=== PATIENT | female | born 1965 | race Caucasian/White ===

== ENCOUNTER 2017-02-21 16:18 | Emergency (ER) | payer OTHER ==
[~2017-02-21] VITALS: Ht 162.6 cm; Wt 100.0 kg
[~2017-02-21 16:18] MED LIST: AMOXICILLIN/CL875 MG PO; AMOXICILLIN500 MG OR; AUGMENTIN875TAB PO; BENZONATATE200 MG PO; DOXYCYCL HYC100 MG PO; FIORICET PO; FLAGYL250 MG PO; KETOROLAC60 MG/2 ML IJ; LISINOP/HCTZ1 TAB PO; MEDDOSEPAK PO; MUPIROCIN2 % EX; NAPROSYN500 MG OR; PROAIR HFA IN; ROBITUSSIN AC10 ML PO; TESSALON PER100 MG PO; ZPAK PO; [UNRECOGNIZED DRUG - REMARK]
[2017-02-21 16:53] LABS: HEMATOCRIT 40.7 % (37.0-47.0); HEMOGLOBIN 13.8 g/dl (12.0-16.0); IMMATURE GRANULOCYTES 0.3 % (0.0-1.0); MEAN CELL VOLUME 92.3 fL CALC (80.0-100.0); MEAN CORPUSCULAR HGB 31.3 pG CALC (26.0-32.0); MEAN CORPUSCULAR HGB CONC 33.9 g/L CALC (32.0-36.0); NEUT# 8.39 thou/uL (2.00-7.15); RED BLOOD COUNT 4.41 mill/uL (4.20-5.60); RED CELL DISTRI WIDTH 14.2 % (11.5-15.5)
[2017-02-21 17:14] LABS: ALBUMIN 4.2 g/dL (3.2-5.0); ALKALINE PHOSPHATASE 111 u/l (38-126); ANION GAP 13 (6-22 (CALC)); BILIRUBIN, TOTAL 0.3 mg/dL (0.0-1.4); BUN 14 mg/dL (7-17); BUN/CREATININE RATIO 22 (12-20 (CALC)); CALCIUM 8.7 mg/dL (8.4-10.2); CARBON DIOXIDE 29 mmol/l (22-30); CHLORIDE 102 mmol/l (95-108); CREATININE 0.6 mg/dL (0.5-1.0); GFR > 60 ML/MIN (>=60 (CALC)); GFR FOR AFR.AMER. > 60 ML/MIN (>=60 (CALC)); GLUCOSE 99 mg/dL (65-105); SGOT/AST 28 u/l (14-36); SGPT/ALT 44 u/l (9-52); SODIUM 140 mmol/l (137-146); TOTAL PROTEIN 7.7 g/dL (6.3-8.2)
[2017-02-21] MEDS ORDERED: TRAMADOL HYDROC50 MG PO (17:19)
[2017-02-21] MEDS ORDERED: MOTRIN800 MG PO (17:19)
[2017-02-21] MEDS ORDERED: FLEXERIL PO (17:19)
[2017-02-21 17:26] LABS: MYOGLOBIN 25 ng/mL (0 - 62)
[2017-02-21 17:54] VITALS: BP 113/68
== END 2017-02-21 18:02 | disposition home or self-care (01) | DRG 556 ==
LOC: ED 16:18
PROVIDERS: Emergency Medicine
DX: M79.1 Myalgia (principal); I10 Essential (primary) hypertension; R94.31 Abnormal electrocardiogram [ECG] [EKG]; F17.200 Nicotine dependence, unspecified, uncomplicated

== ENCOUNTER 2017-07-24 12:23 | Observation (INO) | payer OTHER ==
[~2017-07-24] VITALS: Ht 162.6 cm; Wt 108.9 kg
[~2017-07-24 12:23] MED LIST changes: +FLEXERIL PO; +MOTRIN800 MG PO; +TRAMADOL HYDROC50 MG PO
[2017-07-24] MEDS ORDERED: QVAR80 MCG/ACT IN (12:43)
[2017-07-24 12:51] LABS: HEMATOCRIT 41.6 % (37.0-47.0); HEMOGLOBIN 13.7 g/dl (12.0-16.0); IMMATURE GRANULOCYTES 0.6 % (0.0-1.0); MEAN CELL VOLUME 95.4 fL CALC (80.0-100.0); MEAN CORPUSCULAR HGB 31.4 pG CALC (26.0-32.0); MEAN CORPUSCULAR HGB CONC 32.9 g/L CALC (32.0-36.0); NEUT# 7.98 thou/uL (2.00-7.15); RED BLOOD COUNT 4.36 mill/uL (4.20-5.60)
[2017-07-24 13:06] LABS: ALBUMIN 4.5 g/dL (3.2-5.0); ALKALINE PHOSPHATASE 128 u/l (38-126); ANION GAP 14 (6-22 (CALC)); BILIRUBIN, TOTAL 0.2 mg/dL (0.0-1.4); BUN 14 mg/dL (7-17); BUN/CREATININE RATIO 23 (12-20 (CALC)); CALCIUM 9.2 mg/dL (8.4-10.2); CARBON DIOXIDE 29 mmol/l (22-30); CHLORIDE 105 mmol/l (95-108); CREATININE 0.6 mg/dL (0.5-1.0); GFR > 60 ML/MIN (>=60 (CALC)); GFR FOR AFR.AMER. > 60 ML/MIN (>=60 (CALC)); GLUCOSE 105 mg/dL (65-105); POTASSIUM 4.4 mmol/l (3.5-5.1); SGOT/AST 36 u/l (14-36); SGPT/ALT 51 u/l (9-52); SODIUM 143 mmol/l (137-146); TOTAL PROTEIN 7.8 g/dL (6.3-8.2)
[2017-07-24 13:13] LABS: MYOGLOBIN 51 ng/mL (0 - 62)
[2017-07-24 15:08] LABS: URINE BILIRUBIN - DIPSTICK NEGATIVE (NEGATIVE); URINE BLOOD DIPSTICK NEGATIVE (NEGATIVE); URINE COLOR YELLOW; URINE GLUCOSE - DIPSTICK NEGATIVE (NEGATIVE); URINE KETONE NEGATIVE (NEGATIVE); URINE LEUK ESTERASE NEGATIVE (NEGATIVE); URINE NITRITE - DIPSTICK NEGATIVE (Negative); URINE PROTEIN - DIPSTICK NEGATIVE (NEG-TRACE); URINE SPECIFIC GRAVITY <=1.005; URINE UROBILINOGEN - DIPSTICK 0.2 E.U./dL (0.2)
[2017-07-24 15:09] LABS: URINE CLARITY CLEAR
[2017-07-24 17:07] VITALS: BP 143/87
[2017-07-24 18:55] VITALS: BP 113/70
[2017-07-25 00:18] VITALS: BP 129/58
[2017-07-25 04:02] VITALS: BP 139/81
[2017-07-25 06:27] LABS: ANION GAP 16 (6-22 (CALC)); BUN 10 mg/dL (7-17); BUN/CREATININE RATIO 17 (12-20 (CALC)); CALCIUM 9.1 mg/dL (8.4-10.2); CARBON DIOXIDE 27 mmol/l (22-30); CHLORIDE 106 mmol/l (95-108); CREATININE 0.6 mg/dL (0.5-1.0); GFR > 60 ML/MIN (>=60 (CALC)); GFR FOR AFR.AMER. > 60 ML/MIN (>=60 (CALC)); GLUCOSE 196 mg/dL (65-105); POTASSIUM 5.1 mmol/l (3.5-5.1); SODIUM 144 mmol/l (137-146)
[2017-07-25 08:00] VITALS: BP 153/97
== END 2017-07-25 10:40 | disposition left against medical advice (07) | DRG 192 ==
LOC: ED 12:23 → ED-I 13:30 → ED 13:42 → MS2 14:14
PROVIDERS: Emergency Medicine; Internal Medicine; ADMIT Internal Medicine; ATTEND Internal Medicine
DX: J44.1 Chronic obstructive pulmonary disease with (acute) exacerbation (principal); I10 Essential (primary) hypertension; F17.210 Nicotine dependence, cigarettes, uncomplicated; Z87.440 Personal history of urinary (tract) infections
CPT/HCPCS: G0378; J1650

== ENCOUNTER 2017-08-22 08:46 | Emergency (ER) | payer OTHER ==
[~2017-08-22] VITALS: Ht 162.6 cm; Wt 105.0 kg
[~2017-08-22 08:46] MED LIST changes: +QVAR80 MCG/ACT IN
[2017-08-22 09:34] LABS: HEMATOCRIT 43.9 % (37.0-47.0); HEMOGLOBIN 14.2 g/dl (12.0-16.0); IMMATURE GRANULOCYTES 0.3 % (0.0-1.0); MEAN CELL VOLUME 95.4 fL CALC (80.0-100.0); MEAN CORPUSCULAR HGB 30.9 pG CALC (26.0-32.0); MEAN CORPUSCULAR HGB CONC 32.3 g/L CALC (32.0-36.0); NEUT# 5.86 thou/uL (2.00-7.15); RED BLOOD COUNT 4.6 mill/uL (4.20-5.60); RED CELL DISTRI WIDTH 13.5 % (11.5-15.5)
[2017-08-22 09:40] LABS: ANION GAP 14 (6-22 (CALC)); BUN 8 mg/dL (7-17); BUN/CREATININE RATIO 13 (12-20 (CALC)); CALCIUM 9.4 mg/dL (8.4-10.2); CARBON DIOXIDE 28 mmol/l (22-30); CHLORIDE 104 mmol/l (95-108); CREATININE 0.7 mg/dL (0.5-1.0); GFR > 60 ML/MIN (>=60 (CALC)); GFR FOR AFR.AMER. > 60 ML/MIN (>=60 (CALC)); GLUCOSE 110 mg/dL (65-105); POTASSIUM 4.3 mmol/l (3.5-5.1); SODIUM 141 mmol/l (137-146)
[2017-08-22 10:16] LABS: INFLUENZA A NONE DETECTED (NONE DETECT); INFLUENZA B NONE DETECTED (NONE DETECT)
[2017-08-22] MEDS ORDERED: PREDNISONE50 MG PO ×2 (10:25→11:02)
[2017-08-22] MEDS ORDERED: ZPAK PO ×2 (10:25→11:02)
[2017-08-22] MEDS ORDERED: QVAR80 MCG/ACT PO ×2 (10:25→11:02)
[2017-08-22] MEDS ORDERED: PROAIR HFA108 MCG/AC PO ×2 (10:25→11:02)
[2017-08-22 10:30] VITALS: BP 132/80
== END 2017-08-22 10:30 | disposition home or self-care (01) | DRG 192 ==
LOC: ED 08:46
PROVIDERS: Family Medicine
DX: J44.1 Chronic obstructive pulmonary disease with (acute) exacerbation (principal); F17.210 Nicotine dependence, cigarettes, uncomplicated; I10 Essential (primary) hypertension; M19.90 Unspecified osteoarthritis, unspecified site; F41.9 Anxiety disorder, unspecified; R05 Cough; R06.2 Wheezing; R06.02 Shortness of breath

== ENCOUNTER 2018-02-23 07:41 | Emergency (ER) | payer OTHER ==
[~2018-02-23] VITALS: Ht 162.6 cm; Wt 100.0 kg
[~2018-02-23 07:41] MED LIST changes: +PREDNISONE50 MG PO; +PROAIR HFA108 MCG/AC PO; +QVAR80 MCG/ACT PO
[2018-02-23] MEDS ORDERED: ZPAK PO (08:24)
[2018-02-23] MEDS ORDERED: PREDNISONE50 MG PO (08:24)
[2018-02-23 08:47] VITALS: BP 136/78
[2018-02-23] MEDS ORDERED: LISINOPRIL10 MG PO (09:07)
== END 2018-02-23 08:58 | disposition home or self-care (01) ==
LOC: ED 07:41
DX: J44.1 Chronic obstructive pulmonary disease with (acute) exacerbation (principal); F17.210 Nicotine dependence, cigarettes, uncomplicated; R06.02 Shortness of breath

== ENCOUNTER 2018-03-28 23:19 | Emergency (ER) | payer OTHER ==
[~2018-03-28] VITALS: Ht 162.6 cm; Wt 102.8 kg
[~2018-03-28 23:19] MED LIST changes: +LISINOPRIL10 MG PO
[2018-03-29] MEDS ORDERED: MOTRIN800 MG PO (00:29)
[2018-03-29] MEDS ORDERED: TRAMADOL HCL50 MG PO (00:29)
[2018-03-29 00:39] VITALS: BP 143/73
== END 2018-03-29 00:41 | disposition home or self-care (01) ==
LOC: ED 23:19
DX: S70.01XA Contusion of right hip, initial encounter (principal); W17.89XA Other fall from one level to another, initial encounter; Y92.008 Other place in unspecified non-institutional (private) residence as the place of occurrence of the external cause

== ENCOUNTER 2019-02-04 19:36 | Observation (INO) | payer SELFPAY ==
[~2019-02-04] VITALS: Ht 162.6 cm; Wt 103.0 kg
[~2019-02-04 19:36] MED LIST changes: +TRAMADOL HCL50 MG PO
[2019-02-04 20:13] LABS: URINE BILIRUBIN - DIPSTICK NEGATIVE (NEGATIVE); URINE BLOOD DIPSTICK TRACE-INTACT (NEGATIVE); URINE COLOR YELLOW; URINE GLUCOSE - DIPSTICK NEGATIVE (NEGATIVE); URINE KETONE NEGATIVE (NEGATIVE); URINE LEUK ESTERASE NEGATIVE (NEGATIVE); URINE NITRITE - DIPSTICK NEGATIVE (Negative); URINE PROTEIN - DIPSTICK NEGATIVE (NEG-TRACE); URINE UROBILINOGEN - DIPSTICK 0.2 E.U./dL (0.2)
[2019-02-04 20:14] LABS: HEMATOCRIT 41.3 % (37.0-47.0); HEMOGLOBIN 13.5 g/dl (12.0-16.0); IMMATURE GRANULOCYTES 0.6 % (0.0-5.0); MEAN CELL VOLUME 91.6 fL CALC (80.0-100.0); MEAN CORPUSCULAR HGB 29.9 pG CALC (26.0-32.0); MEAN CORPUSCULAR HGB CONC 32.7 g/L CALC (32.0-36.0); NEUT# 11.5 thou/uL (2.00-7.15); RED BLOOD COUNT 4.51 mill/uL (4.20-5.60); RED CELL DISTRI WIDTH 15.2 % (11.5-15.5)
--- NOTE | 2019-02-04 20:24 | NUR ---
PT ARRIVES TO ROOM VIA WHEELCHAIR, PRODUCTIVE COUGH NOTED. PT NOW WITH IV ESTABLISHED, BLOOD DRAWN, BLOOD CULTURES COLLECTED, URINE PROVIDED. RESP THERAPY HAS BEEN BY TO PROVIDE TREATMENT. SON AT BEDSIDE.
[2019-02-04 20:25] LABS: ALBUMIN 4.1 g/dL (3.2-5.0); ALKALINE PHOSPHATASE 130 u/l (38-126); ANION GAP 15 (6-22 (CALC)); BILIRUBIN, TOTAL 0.2 mg/dL (0.0-1.4); BUN 14 mg/dL (7-17); BUN/CREATININE RATIO 23 (12-20 (CALC)); CARBON DIOXIDE 28 mmol/l (22-30); CHLORIDE 103 mmol/l (95-108); CREATININE 0.6 mg/dL (0.5-1.0); GFR > 60 ML/MIN (>=60 (CALC)); GFR FOR AFR.AMER. > 60 ML/MIN (>=60 (CALC)); POTASSIUM 4.3 mmol/l (3.5-5.1); SGOT/AST 20 u/l (14-36); SODIUM 141 mmol/l (137-146); TOTAL PROTEIN 7.2 g/dL (6.3-8.2)
[2019-02-04 20:37] LABS: MYOGLOBIN 35 ng/mL (0 - 62)
--- NOTE | 2019-02-04 20:57 | NUR ---
PT CONTINUES WITH COUGH. PT UPDATED ON FINDINGS THEY COME KNOWN.
--- NOTE | 2019-02-04 21:57 | NUR ---
ASSUMED CARE. PT RESTING. VSS.
--- NOTE | 2019-02-04 22:08 | NUR ---
REPORT TO XIAO/NURSE/MEDSURG
--- NOTE | 2019-02-04 22:10 | NUR ---
TO FLOOR VIA W/C. BELONGINGS WITH PT. S.O. HOME. PT RESTING. NAD. RESP EASY. FREQUENT NON PRODUCTIVE COUGH
[2019-02-04 22:15] VITALS: BP 143/84
--- NOTE | 2019-02-04 22:15 | NUR ---
PT ARRIVED TO THE FLOOR VIA WC, ACCOMPANIED BY ED NURSE. PT APPEARS TO BE IN STABLE CONDITION. AIDE IN W/PT OBTAINING V/S AND ORIENTING PT TO ROOM,CALL SYSTEM, BED, LIGHTS AND TV. GOLF COURSE EQUIPMENT OPERATOR WILL FOLLOW-UP WITH ASSESSMENT AND ANY MEDICATIONS ORDERED.
[2019-02-05] VITALS (7 sets, daily range): BP systolic 133–169; BP diastolic 72–91
--- NOTE | 2019-02-05 00:15 | NUR ---
PT MEDICATED ORDERS PROVIDE AND FOR HEADACHE REPORTED 11/17. WILL CONTINUE TO MONITOR. SUPER NOTIFIED OF NEW ORDERS FOR MEDICATIONS. WILL FOLLOW-UP WITH ANTIBIOITIC THERAPY ORDERED. PT DENIES ANY OTHER NEEDS AT THIS TIME. CALL LIGHT AT SIDE.
--- NOTE | 2019-02-05 01:34 | NUR ---
PT MEDICATED W/IV ANTIOBITIC THERAPY ORDERS PROVIDE. POC DISCUSSED W/PT AGAIN. PT DENIES ANY NEEDS AT THIS TIME, REPORTING TYLENOL HELPED HER HEADACHE. CALL LIGHT IN HAND.
--- NOTE | 2019-02-05 05:05 | NUR ---
ED CALLED TO REPORT PT IS HAVING ARYTHMIA'S W/HR 58-102. PT CHECKED/PT APPEARS ASYMPTOMATIC, DENIES SOB OTHER THAN COUGHING FITS, DENIES PAIN/N/SWEATS. V/S ASSESSED, BP 128/70, HR 99, 02SATS 92%RA/02 PLACED ON PT@2L 02SATS PROMPLTY CAME UP TO 95%. EKG ORDERED.
--- NOTE | 2019-02-05 05:30 | NUR ---
RESPIRATORY IN TO SEE PT FOR EKG.
--- NOTE | 2019-02-05 05:40 | NUR ---
PT MEDICATED ORDERS PROVIDE. PT RECEIVED DUONEB TREATMENT AT THIS TIME BY RESPIRATORY
[2019-02-05 06:03] LABS: HEMATOCRIT 39.4 % (37.0-47.0); HEMOGLOBIN 12.9 g/dl (12.0-16.0); IMMATURE GRANULOCYTES 1.1 % (0.0-5.0); MEAN CELL VOLUME 92.1 fL CALC (80.0-100.0); MEAN CORPUSCULAR HGB 30.1 pG CALC (26.0-32.0); MEAN CORPUSCULAR HGB CONC 32.7 g/L CALC (32.0-36.0); NEUT# 15.25 thou/uL (2.00-7.15); RED BLOOD COUNT 4.28 mill/uL (4.20-5.60); RED CELL DISTRI WIDTH 15.3 % (11.5-15.5)
[2019-02-05 06:11] LABS: ALBUMIN 3.7 g/dL (3.2-5.0); ALKALINE PHOSPHATASE 119 u/l (38-126); AMYLASE 48 u/l (30-110); ANION GAP 15 (6-22 (CALC)); BILIRUBIN, TOTAL 0.2 mg/dL (0.0-1.4); BUN 11 mg/dL (7-17); BUN/CREATININE RATIO 21 (12-20 (CALC)); CARBON DIOXIDE 27 mmol/l (22-30); CHLORIDE 105 mmol/l (95-108); CREATININE 0.5 mg/dL (0.5-1.0); GFR > 60 ML/MIN (>=60 (CALC)); GFR FOR AFR.AMER. > 60 ML/MIN (>=60 (CALC)); LIPASE 24 u/l (23-300); MAGNESIUM 1.8 mg/dL (1.6-2.3); POTASSIUM 4.8 mmol/l (3.5-5.1); SGOT/AST 17 u/l (14-36); SODIUM 141 mmol/l (137-146); TOTAL PROTEIN 6.6 g/dL (6.3-8.2)
--- NOTE | 2019-02-05 07:00 | NUR ---
PT REPORT RECIEVED FROM AILYN HAGEN. PT WATCHING TELEVISION. NO S/S OF DISTRESS. CALL LIGHT IN REACH. WILL CONTINUE TO MONITOR.
--- NOTE | 2019-02-05 08:10 | NUR ---
PT A/O X3. SPEECH IS CLEAR. RESP EVEN AND UNLABORED. NONPRODUCTIVE COUGH NOTED. LUNG SOUNDS CLEAR. O2 @2L @BEDSIDE. TELE IN PLACE. BOWEL SOUNDS ACTIVE X4. STRONG RADIAL AND PEDAL PULSES. #20 LAC SL. FLUSHED AND PATENT. SITE APPEARS HEALTHY. TRACE OF EDEMA NOTED TO BLE. SKIN INTACT. PT DENIES ANY PAIN OR NEEDS AT THIS TIME. POC DISCUSSED. SAFETY PRECAUTIONS IN PLACE. CALL LIGHT IN REACH. WILL CONTINUE TO MONITOR.
--- NOTE | 2019-02-05 12:08 | NUR ---
PT WATCHING TELEVISION. NO C/O PAIN OR NEEDS. ANXIOUS TO GO HOME. CALL LIGHT IN REACH. WILL CONTINUE TO MONITOR.
--- NOTE | 2019-02-05 16:29 | NUR ---
PT RESTING. NO C/O PAIN OR NEEDS. TELE IN PLACE. CALL LIGHT IN REACH. WILL CONTINUE TO MONITOR.
--- NOTE | 2019-02-05 19:05 | NUR ---
REPORT RECEIVED FROM DAY NURSE, PT IS IN BED IN LOW FOWLERS POSITION W/TV OFF, APPEARS TO BE SLEEPING. DID NOT AWAKE TO MY ENTERING ROOM. CALL LIGHT IS AT SIDE.
[2019-02-06 00:04] VITALS: BP 160/86
--- NOTE | 2019-02-06 00:30 | NUR ---
PT MEDICATED ORDERS PROVIDE AND FOR COUGH. PT IS AWAKE WATCHING TV. DENIES ANY OTHER NEEDS AT THIS TIME. CALL LIGHT AT SIDE AND PT ENCOURAGED TO CALL NEEDS ARISE.
--- NOTE | 2019-02-06 04:09 | NUR ---
PT IS SLEEPING AT THIS TIME. CAN BE HEARD COUGHING, BUT NO OTHER S/O DISTRESS AT THIS TIME. PT HAS BEEN MEDICATED FOR COUGH ORDERS PROVIDE.
[2019-02-06 04:16] VITALS: BP 154/79
[2019-02-06 05:02] LABS: HEMATOCRIT 38.1 % (37.0-47.0); HEMOGLOBIN 12.3 g/dl (12.0-16.0); IMMATURE GRANULOCYTES 2.8 % (0.0-5.0); MEAN CELL VOLUME 92.3 fL CALC (80.0-100.0); MEAN CORPUSCULAR HGB 29.8 pG CALC (26.0-32.0); MEAN CORPUSCULAR HGB CONC 32.3 g/L CALC (32.0-36.0); NEUT# 18.42 thou/uL (2.00-7.15); RED BLOOD COUNT 4.13 mill/uL (4.20-5.60); RED CELL DISTRI WIDTH 15.4 % (11.5-15.5)
[2019-02-06 05:17] LABS: ANION GAP 13 (6-22 (CALC)); BUN 13 mg/dL (7-17); BUN/CREATININE RATIO 27 (12-20 (CALC)); CARBON DIOXIDE 26 mmol/l (22-30); CHLORIDE 109 mmol/l (95-108); CREATININE 0.5 mg/dL (0.5-1.0); GFR > 60 ML/MIN (>=60 (CALC)); GFR FOR AFR.AMER. > 60 ML/MIN (>=60 (CALC)); POTASSIUM 4.5 mmol/l (3.5-5.1); SODIUM 143 mmol/l (137-146)
--- NOTE | 2019-02-06 05:20 | NUR ---
PT IS SLEEPING AT THIS TIME. NO S/O DISTRESS NOTED. CALL LIGHT AT BEDSIDE.
--- NOTE | 2019-02-06 06:12 | NUR ---
PT MEDICATED FOR COUGHT AND HEADACHE "FROM COUGHING." PT REPORTS STRESS [id number] AND ASSISTED W/SUPPLIES NEEDED. POC DISCUSSED, PT REPORTS NEEDING TO GO BACK TO WORK TODAY. WILL INFORM DAY NURSE OF TIMETABLE. DENIES ANY OTHER NEEDS.
--- NOTE | 2019-02-06 07:00 | NUR ---
PT REPORT RECIEVED FROM AILYN HAGEN. PT WATCHING TELEVISION. NO S/S OF DISTRESS. CALL LIGHT IN REACH. WILL CONTINUE TO MONITOR.
[2019-02-06 07:48] VITALS: BP 164/91
--- NOTE | 2019-02-06 07:48 | NUR ---
PT A/O X3. RESP EVEN AND UNLABORED. UPPER LOBES CLEAR, LOWER LOBES DIMINISHED. TELE IN PLACE. NONPRODUCTIVE COUGH NOTED. BOWEL SOUNDS ACTIVE X4. STRONG RADIAL AND PEDAL PULSES. #20 LAC SL. FLUSHED AND PATENT. SITE APPEARS HEALTHY. SKIN INTACT. TRACE EDEMA NOTED TO BILATERAL FEET. PT DENIES ANY PAIN OR NEEDS. POC DISCUSSED. SAFETY PRECAUTIONS IN PLACE. CALL LIGHT IN REACH. WILL CONTINUE TO MONITOR.
--- NOTE | 2019-02-06 10:00 | NUR ---
PT CALLED ASSOCIATE PROFESSOR OF THEOLOGY INTO ROOM. PT STATES " I AM LEAVING BECAUSE I HAVE TO WORK TONIGHT. DISCUSSED W/ PT THE RISKS FACTORS OF LEAVING AMA. PT STATES UNDERSTANDING. IV REMOVED. CATHETER INTACT. TELE ROMOVED. PT GETTING DRESSED.
--- NOTE | 2019-02-06 10:15 | NUR ---
PT LEFT AMBULATORY TO GO HOME.
== END 2019-02-06 10:00 | disposition left against medical advice (07) | DRG 192 ==
LOC: ED 19:36 → ED-I 21:34 → ED 21:52 → MS2 21:53
PROVIDERS: Emergency Medicine; Nurse Practitioner Family; ADMIT Internal Medicine Nephrology; ATTEND Internal Medicine Nephrology
DX: J43.9 Emphysema, unspecified (principal); I10 Essential (primary) hypertension; M19.90 Unspecified osteoarthritis, unspecified site; F17.210 Nicotine dependence, cigarettes, uncomplicated; F41.1 Generalized anxiety disorder; M62.830 Muscle spasm of back
CPT/HCPCS: G0378; J1650

== ENCOUNTER 2019-06-08 21:48 | Emergency (ER) | payer SELFPAY ==
[~2019-06-08] VITALS: Ht 162.6 cm; Wt 99.1 kg
[2019-06-08 22:40] LABS: URINE BILIRUBIN - DIPSTICK NEGATIVE (NEGATIVE); URINE BLOOD DIPSTICK LARGE (NEGATIVE); URINE COLOR YELLOW; URINE GLUCOSE - DIPSTICK NEGATIVE (NEGATIVE); URINE KETONE NEGATIVE (NEGATIVE); URINE NITRITE - DIPSTICK NEGATIVE (Negative); URINE PROTEIN - DIPSTICK TRACE mg/dL (NEG-TRACE); URINE UROBILINOGEN - DIPSTICK 0.2 E.U./dL (0.2)
[2019-06-08 22:41] LABS: URINE LEUK ESTERASE MODERATE (NEGATIVE)
[2019-06-08 22:43] LABS: URINE SQUAMOUS EPITHELIAL CELL FEW EPI/hpf (0-FEW); URINE WBC TNTC WBC/hpf (0-5)
[2019-06-08] MEDS ORDERED: PYRIDIUM200 MG PO (23:03)
[2019-06-08] MEDS ORDERED: CEPHALEXIN500 M1 PO (23:03)
[2019-06-08 23:45] VITALS: BP 134/77
== END 2019-06-08 23:45 | disposition home or self-care (01) | DRG 690 ==
LOC: ED 21:48
PROVIDERS: Emergency Medicine
DX: N39.0 Urinary tract infection, site not specified (principal); I10 Essential (primary) hypertension; J44.9 Chronic obstructive pulmonary disease, unspecified; F17.200 Nicotine dependence, unspecified, uncomplicated

== ENCOUNTER 2019-08-02 21:03 | Observation (INO) | payer SELFPAY ==
[~2019-08-02] VITALS: Ht 162.6 cm; Wt 98.1 kg
[~2019-08-02 21:03] MED LIST changes: +CEPHALEXIN500 M1 PO; +PYRIDIUM200 MG PO
--- NOTE | 2019-08-02 21:03 | NUR ---
TO ROOM 10 VIA EMS. [facility] MARLENE TX COMPLETING (FROM EMS). IV IN PLACE BUT PT REFUSED IV STERIODS BY EMS. TAKING BUT SITTING UPRIGHT AND GASPING WITH SPEECH. C/O SOB X 3 WEEKS BUT WORSE SINCE YESTERDAY. USING OLD MARLENE CHA. REPORTS NO MD OR PRESCRIBED MEDICATION
--- NOTE | 2019-08-02 21:15 | NUR ---
DISCUSSED NEED OF IV STERIODS AT LENGTH WITH PATIENT WHO REFUSED SAYING HER WHOLE BODY SWELLS UP WITH IT ND SHE DOES NOT WANT ANY... NOT EVEN 1 DOSE IN ER. MD TO COMPLY WITH PATIENT'S DESIRE
[2019-08-02 21:46] LABS: HEMOGLOBIN 13.6 g/dl (12.0-16.0); IMMATURE GRANULOCYTES 0.4 % (0.0-5.0); MEAN CELL VOLUME 91.9 fL CALC (80.0-100.0); MEAN CORPUSCULAR HGB 30.5 pG CALC (26.0-32.0); MEAN CORPUSCULAR HGB CONC 33.2 g/L CALC (32.0-36.0); NEUT# 9.73 thou/uL (2.00-7.15); RED BLOOD COUNT 4.46 mill/uL (4.20-5.60); RED CELL DISTRI WIDTH 14.3 % (11.5-15.5)
--- NOTE | 2019-08-02 22:00 | NUR ---
BEDRESTING. NOT TENSE ON ARRIVAL. BREATHING EASIER. PERIODIC COUGH NOTED
[2019-08-02 22:08] LABS: ALBUMIN 3.9 g/dL (3.2-5.0); ALKALINE PHOSPHATASE 115 u/l (38-126); ANION GAP 14 (6-22 (CALC)); BUN 9 mg/dL (7-17); BUN/CREATININE RATIO 16 (12-20 (CALC)); CARBON DIOXIDE 23 mmol/l (22-30); CHLORIDE 106 mmol/l (95-108); CREATININE 0.6 mg/dL (0.5-1.0); GFR > 60 ML/MIN (>=60 (CALC)); GFR FOR AFR.AMER. > 60 ML/MIN (>=60 (CALC)); SGOT/AST 22 u/l (14-36); SODIUM 139 mmol/l (137-146); TOTAL PROTEIN 7.5 g/dL (6.3-8.2)
--- NOTE | 2019-08-02 22:09 | NUR ---
BREATHING TREATMENT GIVEN BACK TO BACK. BREATHING TECH. FOR GOOD DEPOSITION TO THE LUNGS.
[2019-08-02 22:10] LABS: BILIRUBIN, TOTAL 0.3 mg/dL (0.0-1.4)
[2019-08-02 22:20] LABS: MYOGLOBIN 48 ng/mL (0 - 62)
--- NOTE | 2019-08-02 22:35 | NUR ---
MD DISCUSSED STATUS AND PLAN OF CARE WITH PATIENT- INCLUDING NO STERIODS
--- NOTE | 2019-08-02 22:55 | NUR ---
REPORT CALLED TO AKI
--- NOTE | 2019-08-02 23:00 | NUR ---
TO MS VIA W/C
[2019-08-02 23:11] VITALS: BP 144/84
--- NOTE | 2019-08-03 | NUR ---
PATIENT ADMITTED FROM ER VIA WHELLCHAIR WITH ER STAFF AND S/O IN ATTENDANCE. PATIENT AWAKE ALERT AND ORIENTEDX3 WITH VISABLE TREMORS-STATES THAT SHE IS FREEZING. WARM BLANKETS PROVIDED. PATIENT ABLE TO TRANSFER FRON WHEELCHAIR TO BED WITH MIN ASSIST. PATIENT ADMITTED FOR COPD EXACERBATION. O2 SAT-92 ON ROOM AIR AND O2 VIA NASAL CANNULA APPLIED. PATIENT WITH DIMINISHED BS THROUGHOUT. ABD IS SOFT WITH ACTIVE BS-LAST BM WAS 08/02. DENIES ANY DIFFICULTY WITH VOIDING. PATIENT WITH BLE EDEMA 2+. IV SITE TO LEFT AC-#18 [facility]. SITE IS HEALTHY AT THIS TIME. PATIENT ORIENTED TO ROOM AND SURROUNDINGS. INSTRUCTED ON USE OF NURSE CALL LIGHT SYSTEM, TV REMOTE AND PHONE. SAFETY PRECAUTIONS REVIEWED WITH PATIENT. PATIENT WITH FOOD S/O BROUGHT IN. CALL LIGHT IN REACH.WILL CONT TO MONITOR.
[2019-08-03 04:10] VITALS: BP 144/93
--- NOTE | 2019-08-03 04:12 | NUR ---
PATIENT AWAKE ALERT ANDORIENTEDX3-SITTING UPIN BED C/O SOB. VS TAKEN AND RECORDED. O2 93% ON ROOM AIR. PATIENT TOOK O2 OFF. PATIENT WITH NON-PRODUCTIVE COUGH. RT HERE FOR NEB TREATMENT. WILL CONT TO MONITOR.
[2019-08-03 07:46] VITALS: BP 142/72
--- NOTE | 2019-08-03 07:46 | NUR ---
PT SITTING UP IN BED. C/O COUGH WITH SMALL BROWN THICK PHLEGM. ASSESSMENT COMPLETED. NO SOB NOTED AT THIS TIME. POC DISCUSSED WITH PT. PT VERBALIZES UNDERSTANDING. CALL LIGHT IN REACH. WILL CONTINUE TO MONITOR.
--- NOTE | 2019-08-03 11:13 | NUR ---
PT SITTING UP IN BED. SIGNIFICANT OTHER AT BEDISDE. PT DENIES ANY NEEDS. CALL LIGHT IN REACH.
--- NOTE | 2019-08-03 15:40 | NUR ---
REGGIE GONZALEZ AND DR BURRELL AT BEDSIDE.
[2019-08-03 16:00] VITALS: BP 149/98
--- NOTE | 2019-08-03 16:20 | NUR ---
PT SITTING UP IN CHAIR. IV ABT INFUSING AT THIS TIME. PT TOLERATING WELL. DENIES ANY NEEDS AT THIS TIME. PT STATES SHE IS REFUSING SOLUMEDROL ORDER DUE TO "HAVING REACTION TO MEDICATION." PT DENIES ALLERGY TO MEDICATION BUT STATES SHE "SWELLS UP". REGGIE GONZALEZ NOTIFIED DURING AFTERNOON ROUNDS. WILL CONTINUE TO MONITOR. CALL LIGHT IN REACH.
--- NOTE | 2019-08-03 17:20 | NUR ---
[id number] OTHER YELLING OUT IN HALLWAY "I NEED A NURSE." ANCHOR TACKER AT BEDSIDE. PT DIAPHORETIC, SOB, AND UNDRESSED. PT YELLING "I CAN'T BREATHE." O2 HANGING BEHIND PTS NECK. OXYGEN 2L NC PLACED. PT JUST COMPLETED BREATHING BUT STATED SHE FELT SOB PRIOR TO BREATHING TX. ROSALBA, RT AND REGGIE GONZALEZ AT BEDSIDE. O2 SATING 88%-95%. HR 78-154. SIGNIFICANT OTHER REMAINS AT BEDSIDE. PER REGGIE GONZALEZ, PT HAVING A PANIC ATTACK. PT ADMITS TO HAVING PANIC ATTACKS, ESPECIALLY LAST NIGHT AND THAT IS WHY SHE CALLED EMS. PURSED LIP BREATHING ENCOURAGED. RT AND KENNEL OPERATOR LEAVE ROOM. ANCHOR TACKER AND SIGNIFICANT OTHER REMAIN AT BEDSIDE. AFTER SEVERAL MINUTES, PT DOING BETTER WITH HR AND O2 SATS. PT STILL STATING "I CAN'T BREATHE." BREATHING AND RELAXING TECHNIQUES STILL ENCOURAGED. SIGNIFICANT OTHER AT BEDSIDE ON PHONE CALLING PTS DAUGHTER. REQUESTING DAUGHTER "COME TO THE HOSPITAL NOW. YOUR MOM IS HAVING ANOTHER EPISODE." REGGIE GONZALEZ NOTIFIED OF SIGNIFICANT OTHERS CALL. DAUGHTER AT BEDSIDE WITHIN MINUTES. DAUGHTER ASSISTING TO HELP PT CALM DOWN. FAN PROVIDED FOR PT. PT'S O2 SATS 92-98% ON 2L NC. DAUGHTER STATES PT WOULD LIKE TO TAKE SOLU MEDROL TO HELP OPEN UP AIRWAY. INFORMED DAUGHTER PER PT, SHE IS UNABLE TO TAKE DUE TO SWELLING. DAUGHTER STATES PT IS OK WITH TAKING STERIODS Q12H BUT NOT "CONSTANTLY". ANCHOR TACKER UPDATED REGGIE GONZALEZ. SOLU MEDROL GIVEN. EDUCATED PT ON SIDE EFFECTS OF MED. PT REMAINS SITTING ON SIDE OF BED. CONTINUING WITH SLOW DEEP BREATHS. PT STATES SHE IS "FEELING BETTER." SIGNIFICANT OTHER NO LONGER AT BEDSIDE. DAUGHTER REMAINS AT BEDSIDE. PT REQUESTING CLEAN LINEN. WILL NOTIFY PRODUCT MANAGEMENT CONSULTANT. CALL LIGHT IN REACH.
--- NOTE | 2019-08-03 18:40 | NUR ---
PT SITTING UP IN CHAIR, MUCH CALMER. NO SOB AT THIS TIME. DAUGHTER AT BEDSIDE. PT REQUESTING SHOWER. LINENS CHANGED AND SUPPLIES PROVIDED FOR SHOWER. O2 REMAINS IN PLACE. CALL LIGHT IN REACH.
[2019-08-03 19:30] VITALS: BP 146/98
--- NOTE | 2019-08-03 20:00 | NUR ---
PT SITTING IN BED, NO SIGNS OF DISTRESS NOTED, RESP EVEN AND UNLABORED. PT ALERT AND ORIENTED X3, DISCUSSE POC, PT STATES SHE DOES NOT WANT TO TAKE STEROIDS FREQUENTLY. PT HAS A FINANCIAL MANAGER COUGH, REQUESTING COUGH SYRUP. PT MEDICATED. ASSESSMENT COMPLETED, CALL LIGHT IN REACH,CONTINUE TO MONITOR.
--- NOTE | 2019-08-03 23:37 | NUR ---
PT SITTING IN BED, WATCHING TV. PT REQUESTS BETY PAULA, NO SIGNS OF DISTRESS NOTED, RESP EVEN AND UNLABORED. CALL LIGHT IN REACH,CONTINUE TO MONITOR.
--- NOTE | 2019-08-04 03:16 | NUR ---
PT SITTING ON SIDE OF BED, MEDICATED WITH ROBITUSSIN AC. CALL LIGHT IN REACH,CONTINUE TO MONITOR.
[2019-08-04 04:40] VITALS: BP 125/82
[2019-08-04 07:19] VITALS: BP 120/72
--- NOTE | 2019-08-04 08:30 | NUR ---
ASSESSMENT DONE. PT IS A&O X3. PT STATED SHE HAS A HEADACHE. MEDICATED PT WITH MOTRIN. PT REFUSED HER SOUL-MEDROL. PT STATED THAT SHE DOES NOT NEED IT AT THIS TIME. LUNGS SOUND DIMINISHED. PT DENIES ANY OTHER NEEDS AT THIS TIME. CALL LIGHT IN REACH.
--- NOTE | 2019-08-04 12:00 | NUR ---
PT IS EATING HER LUNCH WITH NO S/S OF DISTRESS NOTED. CALL LIGHT IN REACH.
--- NOTE | 2019-08-04 12:45 | NUR ---
NEB TX NOT GIVEN. THERAPIST TRIAGED ELSEWHERE.
[2019-08-04 14:40] VITALS: BP 140/89
--- NOTE | 2019-08-04 16:54 | NUR ---
PT STATED SHE IS HAVING A REACTION TO THE ZITHROMAX BECAUSE SHE IS HOT AND SWEATING. PT FEELS LIKE SOB BUT PT STATED I CAN BREATH. JASMIN BERNARD IN ROOM. OBTAIN O2 IS 94% RA AND P-149. JASMIN TOLD PT SHE IS HAVING A PANIC ATTACK. ORDERS RECEIVED. CALL LIGHT IN REACH.
--- NOTE | 2019-08-04 18:50 | NUR ---
DAUGHTER ASSISTED PT TO THE SHOWER PT HAD A BM IN BED. PT DENIES ANY OTHER NEEDS. PT STATED SHE FEELS LITTLE BETTER. CALL LIGHT IN REACH.
[2019-08-04 19:33] VITALS: BP 146/103
[2019-08-05 05:10] LABS: HEMATOCRIT 41.5 % (37.0-47.0); HEMOGLOBIN 13.4 g/dl (12.0-16.0); IMMATURE GRANULOCYTES 0.7 % (0.0-5.0); MEAN CELL VOLUME 94.3 fL CALC (80.0-100.0); MEAN CORPUSCULAR HGB 30.5 pG CALC (26.0-32.0); MEAN CORPUSCULAR HGB CONC 32.3 g/L CALC (32.0-36.0); NEUT# 15.05 thou/uL (2.00-7.15); RED BLOOD COUNT 4.4 mill/uL (4.20-5.60); RED CELL DISTRI WIDTH 14.6 % (11.5-15.5)
[2019-08-05 05:52] VITALS: BP 152/105
[2019-08-05 08:00] VITALS: BP 175/124
[2019-08-05 10:04] VITALS: BP 153/97
[2019-08-05] MEDS ORDERED: PREDNISONE10 MG PO (13:34)
[2019-08-05] MEDS ORDERED: LISINOPRIL10 MG PO (13:35)
[2019-08-05] MEDS ORDERED: LEVAQUIN750 MG PO (13:35)
--- NOTE | 2019-08-05 14:00 | NUR ---
PT SEEN BY DR DENNISON THIS AFTERNOOON, DISCHARGED TO HOME. PT'S IV HAS BEEN REMOVED, AWAITS PAPERWORK. NO DISTRESS, NO COMPLAINTS.
--- NOTE | 2019-08-05 14:30 | NUR ---
PT VERBALIZES UNDERSTANDING OF DC INSTRUCTIONS, TAKEN BY WHEELCHAIR TO WAITING VEHICLE. PT LEAVES DM IN STABLE CONDITION.
== END 2019-08-05 14:40 | disposition home or self-care (01) | DRG 192 ==
LOC: ED 21:03 → ED-I 22:19 → ED 22:37 → MS2 22:38
PROVIDERS: Family Medicine; Nurse Practitioner Family; ADMIT Internal Medicine; ATTEND Internal Medicine
PROC: 3E0234Z Introduction of Serum, Toxoid and Vaccine into Muscle, Percutaneous Approach (ICD-10-PCS; principal; 2019-08-04)
PROC: 3E02340 Introduction of Influenza Vaccine into Muscle, Percutaneous Approach (ICD-10-PCS; 2019-08-04)
DX: J43.9 Emphysema, unspecified (principal); R09.02 Hypoxemia; I10 Essential (primary) hypertension; F41.1 Generalized anxiety disorder; F17.200 Nicotine dependence, unspecified, uncomplicated; Z23 Encounter for immunization; Z91.19 Patient's noncompliance with other medical treatment and regimen
CPT/HCPCS: G0378; J1650

== ENCOUNTER 2020-01-01 10:51 | Emergency (ER) | payer SELFPAY ==
[~2020-01-01 10:51] MED LIST changes: +LEVAQUIN750 MG PO; +PREDNISONE10 MG PO
[2020-01-01] MEDS ORDERED: METOPROL TAR25 MG PO (11:27)
[2020-01-01] MEDS ORDERED: SPIRONOLACTONE50 MG PO (11:27)
[2020-01-01] MEDS ORDERED: LASIX 20 MG TAB20 MG PO (11:28)
[2020-01-01 11:38] LABS: HEMATOCRIT 39.1 % (37.0-47.0); IMMATURE GRANULOCYTES 0.3 % (0.0-5.0); MEAN CELL VOLUME 93.1 fL CALC (80.0-100.0); MEAN CORPUSCULAR HGB CONC 33.2 g/dL CAL (32.0-36.0); NEUT# 4.53 thou/uL (2.00-7.15); RED BLOOD COUNT 4.2 mill/uL (4.20-5.60); RED CELL DISTRI WIDTH 13.6 % (11.5-15.5)
[2020-01-01 11:41] LABS: URINE BILIRUBIN - DIPSTICK NEGATIVE (NEGATIVE); URINE BLOOD DIPSTICK NEGATIVE (NEGATIVE); URINE COLOR YELLOW; URINE GLUCOSE - DIPSTICK NEGATIVE (NEGATIVE); URINE KETONE NEGATIVE (NEGATIVE); URINE LEUK ESTERASE NEGATIVE (NEGATIVE); URINE NITRITE - DIPSTICK NEGATIVE (Negative); URINE PH 5.5 (4.5-8.0); URINE PROTEIN - DIPSTICK NEGATIVE (NEG-TRACE); URINE SPECIFIC GRAVITY 1.025; URINE UROBILINOGEN - DIPSTICK 0.2 E.U./dL (0.2)
[2020-01-01 11:59] LABS: ALBUMIN 4.1 g/dL (3.2-5.0); ALKALINE PHOSPHATASE 125 u/l (38-126); ANION GAP 10 (6-22 (CALC)); BILIRUBIN, TOTAL 0.3 mg/dL (0.0-1.4); BUN 19 mg/dL (7-17); BUN/CREATININE RATIO 29 (12-20 (CALC)); CHLORIDE 103 mmol/l (95-108); CREATININE 0.7 mg/dL (0.5-1.0); GFR > 60 ML/MIN (>=60 (CALC)); GFR FOR AFR.AMER. > 60 ML/MIN (>=60 (CALC)); LIPASE 146 u/l (23-300); POTASSIUM 3.8 mmol/l (3.5-5.1); SGOT/AST 24 u/l (14-36); SODIUM 138 mmol/l (137-146); TOTAL PROTEIN 7.4 g/dL (6.3-8.2)
[2020-01-01 12:02] LABS: CARBON DIOXIDE 29 mmol/l (22-30)
[2020-01-01] MEDS ORDERED: VALTREX1 GM PO (12:34)
[2020-01-01] MEDS ORDERED: HYDROCO/APAP1 TA9 PO (12:34)
[2020-01-01 12:54] VITALS: BP 98/54
== END 2020-01-01 12:54 | disposition home or self-care (01) | DRG 596 ==
LOC: ED 10:51
DX: B02.9 Zoster without complications (principal); I10 Essential (primary) hypertension; J44.9 Chronic obstructive pulmonary disease, unspecified; F17.200 Nicotine dependence, unspecified, uncomplicated; Z87.440 Personal history of urinary (tract) infections

== ENCOUNTER 2020-09-29 19:07 | Emergency (ER) | payer SELFPAY ==
[~2020-09-29] VITALS: Ht 162.6 cm; Wt 105.0 kg
[~2020-09-29 19:07] MED LIST changes: +HYDROCO/APAP1 TA9 PO; +LASIX 20 MG TAB20 MG PO; +METOPROL TAR25 MG PO; +SPIRONOLACTONE50 MG PO; +VALTREX1 GM PO
[2020-09-29 19:37] LABS: HEMATOCRIT 39.7 % (37.0-47.0); IMMATURE GRANULOCYTES 0.5 % (0.0-5.0); MEAN CELL VOLUME 93.6 fL CALC (80.0-100.0); MEAN CORPUSCULAR HGB 30.7 pG CALC (26.0-32.0); MEAN CORPUSCULAR HGB CONC 32.7 g/dL CAL (32.0-36.0); NEUT# 7.58 thou/uL (2.00-7.15); RED BLOOD COUNT 4.24 mill/uL (4.20-5.60); RED CELL DISTRI WIDTH 13.6 % (11.5-15.5)
[2020-09-29 19:50] LABS: ALBUMIN 4.4 g/dL (3.2-5.0); ALKALINE PHOSPHATASE 103 u/l (38-126); ANION GAP 15 (6-22 (CALC)); BILIRUBIN, TOTAL 0.5 mg/dL (0.0-1.4); BUN 10 mg/dL (7-17); BUN/CREATININE RATIO 17 (12-20 (CALC)); CARBON DIOXIDE 23 mmol/l (22-30); CHLORIDE 107 mmol/l (95-108); CREATININE 0.6 mg/dL (0.5-1.0); ETHYL ALCOHOL 160 mg/dl (0-30); GFR > 60 ML/MIN (>=60 (CALC)); GFR FOR AFR.AMER. > 60 ML/MIN (>=60 (CALC)); SGOT/AST 50 u/l (14-36); SODIUM 141 mmol/l (137-146); TOTAL PROTEIN 7.5 g/dL (6.3-8.2)
[2020-09-29] MEDS ORDERED: XANAX0.5 MG PO (22:56)
[2020-09-29 23:00] VITALS: BP 112/67
== END 2020-09-29 23:30 | disposition home or self-care (01) | DRG 880 ==
LOC: ED 19:07
PROVIDERS: Emergency Medicine
DX: F41.9 Anxiety disorder, unspecified (principal); F32.9 Major depressive disorder, single episode, unspecified; F10.129 Alcohol abuse with intoxication, unspecified; T43.506A Underdosing of unspecified antipsychotics and neuroleptics, initial encounter; T46.5X6A Underdosing of other antihypertensive drugs, initial encounter; I10 Essential (primary) hypertension; J44.9 Chronic obstructive pulmonary disease, unspecified; F17.200 Nicotine dependence, unspecified, uncomplicated; Z91.128 Patient's intentional underdosing of medication regimen for other reason